=== PATIENT | male | born 1975 | race American Indian/Alaskan Native ===

== ENCOUNTER 2017-11-02 15:05 | Emergency (ER) | payer OTHER ==
[2017-11-02 15:05] VITALS: BMI 29.4
[2017-11-02 15:37] VITALS: BP 140/82; PULSE 85; RESP 20; TEMP 97.7; O2SAT 98
--- NOTE | 2017-11-02 16:10 | ED PDOC ---
HPI: Headache Time Seen by Provider: 11/02/17 15:46 Chief Complaint (Nursing): Headache Chief Complaint (Provider): Headache History Per: Patient History/Exam Limitations: no limitations Onset/Duration Of Symptoms: Intermittent Episodes, Worse Since (x3 days) Current Symptoms Are (Timing): Better Associated Symptoms: denies: Photophobia, Blurred Vision, Nausea, Vomiting, Extremity Weakness Additional Complaint(s): 42 year old male who presents to the emergency department with a complaint of intermittent headaches associated with neck pain and stiffness, worsening in the last 3 days. Patient reported ongoing history of headaches with associated neck stiffness x years; had an MRI last year which was normal. Patient states recent headaches similar to previous headaches except higher intensity. Patient was seen at Urgent Care today and sent to ED for further eval. Denied any fever, chills, numbness, weakness, visual changes or light sensitivity. Patient also noted improvement with headache upon arrival to ED after taking Advil 2 hours prior to arrival. PMD: none provided - Risk Factors SAH Risk Factors: Neg: Sudden Onset Of Pain, Worst Headache Of Life Past Medical History Reviewed: Historical Data, Nursing Documentation, Vital Signs Vital Signs: Last Vital Signs Temp 97.7 F 11/02/17 15:34 Pulse 85 11/02/17 15:34 Resp 20 11/02/17 15:34 BP 140/82 11/02/17 15:34 Pulse Ox 98 11/02/17 15:34 - Medical History PMH: No Chronic Diseases - Surgical History Surgical History: No Surg Hx - Family History Family History: States: Unknown Family Hx - Social History Current smoker - smoking cessation education provided: No Alcohol: Social Drugs: Denies - Home Medications Home Medications: Ambulatory Orders Medication Instructions Recorded Cyclobenzaprine [Cyclobenzaprine 10 mg PO BID PRN #14 tab 11/02/17 HCl] Naproxen 500 mg PO BID PRN 20 Days #20 tab 11/02/17 - Allergies Allergies/Adverse Reactions: Allergies Allergy/AdvReac Type Severity Reaction Status Date / Time No Known Allergies Allergy Verified 11/02/17 15:33 Review of Systems ROS Statement: Except As Marked, All Systems Reviewed And Found Negative Constitutional: Negative for: Fever, Chills Eyes: Negative for: Vision Change (or photophobia) Musculoskeletal: Positive for: Neck Pain (and stiffness) Neurological: Positive for: Headache. Negative for: Weakness, Numbness Physical Exam - Reviewed Nursing Documentation Reviewed: Yes Vital Signs Reviewed: Yes - Physical Exam Appears: Positive for: Well, Non-toxic, No Acute Distress Head Exam: Positive for: ATRAUMATIC, NORMAL INSPECTION, NORMOCEPHALIC Eye Exam: Positive for: Normal appearance, EOMI, PERRL. Negative for: Nystagmus Neck: Positive for: Normal, Painless ROM, Supple. Negative for: Decreased ROM Cardiovascular/Chest: Positive for: Regular Rate, Rhythm, Chest Non Tender Respiratory: Positive for: Normal Breath Sounds. Negative for: Decreased Breath Sounds, Respiratory Distress Gastrointestinal/Abdominal: Positive for: Normal Exam, Soft. Negative for: Tenderness Back: Positive for: Muscle Spasm (bilateral cspine paravertebral tenderness) Extremity: Positive for: Normal ROM (upper/lower) Neurologic/Psych: Positive for: Alert (x3), Oriented. Negative for: Motor/ Sensory Deficits - Laboratory Results Result Diagrams: 11/02/17 16:15 11/02/17 16:15 - ECG O2 Sat by Pulse Oximetry: 98 (RA) Pulse Ox Interpretation: Normal Medical Decision Making Medical Decision Making: Initial Impression: Tension headache; neck muscle strain Initial Plan: * CT head without contrast * CMP * CBC ____ Time: 1718 --CT head FINDINGS: HEMORRHAGE: No intracranial hemorrhage. BRAIN: No mass effect or edema. No atrophy or chronic microvascular ischemic changes. VENTRICLES: Unremarkable. No hydrocephalus. CALVARIUM: Unremarkable. PARANASAL SINUSES: Unremarkable as visualized. No significant inflammatory changes. MASTOID AIR CELLS: Unremarkable as visualized. No inflammatory changes. OTHER FINDINGS: None. IMPRESSION: No acute intracranial abnormalities. No significant findings to account for the clinical presentation. Time: 174 --Upon provider reevaluation, patient is feeling better, medically stable and requires no further treatment in the ED at this time. Patient will be discharged home with Rx for naproxen, flexeril. Counseling was provided and all questions were answered regarding diagnosis and need for follow up with neurologist. There is agreement to discharge plan. Return if symptoms persist or worsen. Clinical Impression: Headache Scribe Attestation: Documented by Daphne Morales, acting as a scribe for Altagracia Chowdary PA-C. Provider Scribe Attestation: All medical record entries made by the Scribe were at my direction and personally dictated by me. I have reviewed the chart and agree that the record accurately reflects my personal performance of the history, physical exam, medical decision making, and the department course for this patient. I have also personally directed, reviewed, and agree with the discharge instructions and disposition. Disposition - Clinical Impression Clinical Impression: Headache, Neck muscle strain - Patient ED Disposition Is Patient to be Admitted: No Counseled Patient/Family Regarding: Studies Performed, Diagnosis, Need For Followup, Rx Given - Disposition Disposition: Routine/Home Disposition Time: 05:00 Condition: IMPROVED Prescriptions: Cyclobenzaprine [Cyclobenzaprine HCl] 10 mg PO BID PRN #14 tab PRN Reason: Muscle Spasm Naproxen 500 mg PO BID PRN 20 Days #20 tab PRN Reason: Pain, Moderate (4-7) Instructions: Tension Headache (ED) Forms: [employer] ([place])
[2017-11-02 16:19] LABS: BASO # 0.1 K/uL (0.0-0.2); BASO % 0.9 % (0.0-2.0); EOS # 0.2 K/uL (0.0-0.7); EOS % 4.1 % (0.0-4.0); HEMOGLOBIN 15.4 g/dL (12.0-18.0); LYMPH # 1.9 K/uL (1.0-4.3); LYMPH % 31.6 % (20.0-40.0); MEAN CELL VOLUME 89.4 fl (80.0-94.0); MEAN CORPUSCULAR HEMOGLOBIN 31.4 pg (27.0-31.0); MEAN CORPUSCULAR HGB CONC 35.2 g/dL (33.0-37.0); MEAN PLATELET VOLUME 7.6 fl (7.2-11.7); MONO # 0.5 K/uL (0.0-0.8); MONO % 9.3 % (0.0-10.0); NEUT # 3.2 K/uL (1.8-7.0); NEUT % 54.1 % (50.0-75.0); NRBC % 0.2 % (0.0-0.0); RBC 4.9 Mil/uL (4.40-5.90); RED CELL DISTRIBUTION WIDTH 12.7 % (11.5-14.5); WHITE BLOOD COUNT 5.9 K/uL (4.8-10.8)
[2017-11-02 16:52] LABS: ALB/GLOB RATIO 1.2 (1.0-2.1); ALBUMIN 4.2 g/dL (3.5-5.0); ALT/SGPT 41 U/L (21-72); AST/SGOT 31 U/L (17-59); BLOOD UREA NITROGEN 15 mg/dl (9-20); CALCIUM 9.2 mg/dL (8.4-10.2); GFR AFRICAN-AMERICAN > 60; GFR NON-AFRICAN AMERICAN > 60
--- NOTE | 2017-11-02 17:20 | CT ---
PROCEDURE: CT HEAD WITHOUT CONTRAST. HISTORY: headache, neck pain COMPARISON: None available. TECHNIQUE: Axial computed tomography images were obtained through the head/brain without intravenous contrast. Radiation dose: Total exam DLP = 839.25 mGy-cm. This CT exam was performed using one or more of the following dose reduction techniques: Automated exposure control, adjustment of the mA and/or kV according to patient size, and/or use of iterative reconstruction technique. FINDINGS: HEMORRHAGE: No intracranial hemorrhage. BRAIN: No mass effect or edema. No atrophy or chronic microvascular ischemic changes. VENTRICLES: Unremarkable. No hydrocephalus. CALVARIUM: Unremarkable. PARANASAL SINUSES: Unremarkable as visualized. No significant inflammatory changes. MASTOID AIR CELLS: Unremarkable as visualized. No inflammatory changes. OTHER FINDINGS: None. IMPRESSION: No acute intracranial abnormalities. No significant findings to account for the clinical presentation.
== END 2017-11-02 17:52 | disposition home or self-care (01) ==
LOC: H.ER 15:05
DX: R51 Headache (principal); M54.2 Cervicalgia